=== PATIENT | female | born 1955 | race Caucasian/White ===

== ENCOUNTER → 2017-06-06 14:47 | Outpatient (CLI) | payer BC ==
[2016-05-01 17:37] VITALS: BMI 31.6
[~2017-06-06 14:47] MED LIST: CELEXA20 MG PO; COLACE100 MG PO; FLAGYL500 MG PO; HYDROCODONE-APA1 TAB PO; LEVAQUIN500 MG PO; LOVENOX40 MG/0.4 SC; MICARDIS40 MG PO; PEPCID20 MG PO; PERCOCET 5-3251 TAB PO; VALIUM10 MG PO
== END | disposition home or self-care (01) ==
LOC: D.MAMMO 08:30
DX: R92.8 Other abnormal and inconclusive findings on diagnostic imaging of breast (principal)

== ENCOUNTER → 2019-02-19 12:40 | Outpatient (CLI) | payer BC ==
[2016-05-01 17:37] VITALS: BMI 31.6
== END | disposition home or self-care (01) ==
LOC: D.US 12:40
PROVIDERS: ATTEND Family Medicine
DX: E05.90 Thyrotoxicosis, unspecified without thyrotoxic crisis or storm (principal)

== ENCOUNTER → 2019-03-01 10:26 | Outpatient (CLI) | payer BC ==
[2016-05-01 17:37] VITALS: BMI 31.6
== END | disposition home or self-care (01) ==
LOC: D.US 10:26
PROVIDERS: ATTEND Family Medicine
DX: E04.1 Nontoxic single thyroid nodule (principal)

== ENCOUNTER → 2020-01-28 13:49 | Outpatient (CLI) | payer OTHER ==
[2016-05-01 17:37] VITALS: BMI 31.6
== END | disposition home or self-care (01) ==
LOC: D.LABREF 13:49
PROVIDERS: ATTEND Urology
DX: R82.90 Unspecified abnormal findings in urine (principal)